=== PATIENT | male | born 1955 | race Caucasian/White ===

== ENCOUNTER 2023-03-08 19:16 | Inpatient (IN) | payer BC, MEDICARE ==
[~2023-03-08 19:16] MED LIST: Iopamidol-370 76% 500 ML MDV (1 ML CHARGE) ONE
[2023-03-08] MEDS ORDERED: levETIRAcetam 500 MG (5 mL) VIAL ONE (19:31)
[2023-03-08] MEDS ORDERED: LORazepam 2 MG/ML SYR.(CARPUJECT) ONE ×2 (19:34→22:30)
[2023-03-08] MEDS ORDERED: Haloperidol Lactate 5 MG/ML VIAL ONE (19:38)
[2023-03-08] MEDS ORDERED: diphenhydrAMINE 50 MG/ML VIAL ONE (19:42)
[2023-03-08 19:57] LABS: #Eosinphils 0.1 thou/uL (0.0-0.7); #Monocytes 0.5 thou/uL (0.11-0.59); #Neutrophils 9.1 thou/uL (1.40-6.50); %Basophils 0.4 % (0.0-1.0); %Lymphocytes 8.8 % (21.0-51.0); %Neutrophils 84.4 % (42.0-75.0); Hematocrit 48.3 % (42.0-52.0); Mean Corpuscular HGB CONC 35.2 g/dL (32.0-36.0); Mean Corpuscular Hemoglobin 32.5 pg (27.0-31.0); Mean Corpuscular Volume 92.4 fl (78.0-98.0); Mean Platelet Volume 10.6 fL (7.4-10.4); Platelet Count 219 10x3/uL (130-400); RBC Distribution Width 12.6 % (11.5-14.5); Red Blood Cell (RBC) Count 5.23 mill/uL (4.70-6.10); White Blood Cell (WBC) Count 10.7 10x3/uL (4.8-10.8)
[2023-03-08 20:10] LABS: INR-International Normal Ratio 1.3; Prothrombin Time 16.2 sec (12.0-14.7)
[2023-03-08 20:11] LABS: PTT 24.3 sec (22.9-36.1)
[2023-03-08 20:19] LABS: ALT (SGPT) 19 U/L (8-55); AST (SGOT) 17 U/L (5-34); Albumin 4.9 g/dL (3.4-4.8); Alkaline Phosphatase 80 U/L (40-110); Anion Gap 22 mmol/L (10-20); BUN (Urea Nitrogen) 23 mg/dL (8.4-25.7); Bilirubin, Total 0.8 mg/dL (0.2-1.2); Calc. Creatinine Clearance 0 mL/min (70-130); Calcium 9.5 mg/dL (7.8-10.44); Carbon Dioxide 17 mmol/L (23-31); Chloride 103 mmol/L (98-107); Estimated GFR 53; Globulin 2.9 g/dL (2.4-3.5); Glucose 232 mg/dL (80-115); Lipase 18 U/L (8-78); Magnesium 1.9 mg/dL (1.6-2.6); Potassium 4.2 mmol/L (3.5-5.1); Protein, Total 7.8 g/dL (5.8-8.1); Sodium 138 mmol/L (136-145)
[2023-03-08 20:23] LABS: Troponin I 0.014 ng/mL (< 0.028)
[2023-03-08] MEDS ORDERED: Ondansetron PF 4 MG/2 ML Vial IVP PRN (21:45)
[2023-03-08] MEDS ORDERED: Ondansetron ODT 4 MG TAB SL PRN (21:45)
[2023-03-08] MEDS ORDERED: DOBUTamine 500 mg/250 ml 250 ML ONE (21:46)
[2023-03-08] MEDS ORDERED: Acetaminophen 325 MG TAB PO PRN (22:03)
[2023-03-08] MEDS ORDERED: Lorazepam 1 MG TAB PO PRN (22:05)
[2023-03-08] MEDS ORDERED: Lorazepam 2 MG/ML VIAL IM PRN (22:05)
[2023-03-08] MEDS ORDERED: HumaLOG 300 UNITS/3 ML VIAL SC PRN ×2 (22:07)
[2023-03-08] MEDS ORDERED: Dextrose 50% Abboject 50 ML SYRINGE SLOW IVP PRN (22:07)
[2023-03-08] MEDS ORDERED: Glucagon 1 MG/ML KIT IM PRN (22:07)
[2023-03-08] MEDS ORDERED: Dextrose 5% in Water 1,000 ML IV PRN (22:07)
[2023-03-08] MEDS ORDERED: Sodium Chloride 0.9% 1,000 ML IV SCH (22:15)
[2023-03-08] MEDS ORDERED: Electrolyte Replacement Protocol 1 EACH FS SCH (22:15)
[2023-03-08] MEDS ORDERED: Lorazepam 2 MG/ML VIAL SLOW IVP PRN (22:18)
[2023-03-08] MEDS ORDERED: Folic Acid 1 MG TAB PO SCH (22:30)
[2023-03-08] MEDS ORDERED: Multivit, Therapeutic 1 TAB PO SCH (22:30)
[2023-03-08] MEDS ORDERED: Pantoprazole 40 MG VIAL IVP SCH (22:45)
[2023-03-08 22:52] LABS: Phosphorus 3.1 mg/dL (2.3-4.7)
[2023-03-08] MEDS ORDERED: DOBUTamine 500 mg/250 ml 250 ML IVPB SCH (23:15)
[2023-03-08] MEDS: Thiamine HCl 200 MG/2 ML VIAL SLOW IVP SCH (23:59)
[2023-03-09 00:40] VITALS: BMI 32.5
[2023-03-09] MEDS ORDERED: Magnesium 2 GM/50 ML(in water) 2 GM in Premix 1 BAG IVPB SCH (00:45)
[2023-03-09 05:51] LABS: #Monocytes 1.2 thou/uL (0.11-0.59); %Basophils 0.3 % (0.0-1.0); %Eosinophils 0.2 % (0.0-10.0); %Lymphocytes 12.7 % (21.0-51.0); %Monocytes 12.7 % (0.0-10.0); %Neutrophils 73.7 % (42.0-75.0); Hematocrit 44.2 % (42.0-52.0); Hemoglobin 15.1 g/dL (14.0-18.0); Mean Corpuscular HGB CONC 34.2 g/dL (32.0-36.0); Mean Corpuscular Volume 93.6 fl (78.0-98.0); Mean Platelet Volume 10.9 fL (7.4-10.4); Platelet Count 198 10x3/uL (130-400); RBC Distribution Width 12.8 % (11.5-14.5); Red Blood Cell (RBC) Count 4.72 mill/uL (4.70-6.10); White Blood Cell (WBC) Count 9.4 10x3/uL (4.8-10.8)
[2023-03-09 06:00] LABS: Hemoglobin A1c 10.3 % (4.0-6.0)
[2023-03-09 06:30] LABS: ALT (SGPT) 14 U/L (8-55); AST (SGOT) 16 U/L (5-34); Albumin 3.8 g/dL (3.4-4.8); Alkaline Phosphatase 58 U/L (40-110); Anion Gap 21 mmol/L (10-20); BUN (Urea Nitrogen) 19 mg/dL (8.4-25.7); Bilirubin, Total 0.7 mg/dL (0.2-1.2); Calc. Creatinine Clearance 97 mL/min (70-130); Calcium 8.5 mg/dL (7.8-10.44); Carbon Dioxide 18 mmol/L (23-31); Cardiac Risk 5.1 (Less than 4.5); Chloride 105 mmol/L (98-107); Cholesterol 184 mg/dl (< 200 Desired); Estimated GFR 74; Globulin 2.7 g/dL (2.4-3.5); Glucose 132 mg/dL (80-115); HDL Cholesterol 36 mg/dL (>60 Neg Risk); LDL Cholesterol, Calculated 136 mg/dL; Magnesium 2.6 mg/dL (1.6-2.6); Potassium 3.6 mmol/L (3.5-5.1); Protein, Total 6.5 g/dL (5.8-8.1); Sodium 140 mmol/L (136-145); Triglycerides 59 mg/dL (Less than 150)
[2023-03-09] MEDS ORDERED: Electrolyte Replacement Protocol FS PRN (08:45)
[2023-03-09] MEDS: levETIRAcetam 500 MG (5 mL) VIAL SLOW IVP SCH ×2 (09:42→21:35)
[2023-03-09] MEDS: Pantoprazole 40 MG VIAL IVP SCH (09:43)
[2023-03-09] MEDS: Aspirin 81 mg Enteric Coated Tablet PO SCH ×2 (09:43→09:50)
[2023-03-09] MEDS: Folic Acid 1 MG TAB PO SCH ×2 (09:43→09:50)
[2023-03-09] MEDS: Multivit, Therapeutic 1 TAB PO SCH ×2 (09:43→09:50)
[2023-03-09 13:43] LABS: Troponin I 0.157 ng/mL (< 0.028)
[2023-03-09 19:25] LABS: Bacteria/HPF None Seen HPF (None Seen); Bilirubin Negative (Negative); Blood, Urine Negative (Negative); CAUTI Indications for Culture Alt mental st,lethar; Clarity Clear (Clear); Glucose, Urine (Dipstick) Greater than 1000 mg/dL (Negative); Ketone, Urine 40 mg/dL (Negative); Leukocyte Negative Leu/uL (Negative); Nitrite Negative (Negative); Protein, Urine (Dipstick) 70 mg/dL (Neg-Trace); RBC/HPF 0-3 HPF (0-3); Specific Gravity, Urine 1.046 (1.002-1.036); Squamous Epithelial None Seen HPF (0-3); Urobilinogen Normal mg/dL (Less than 2); WBC/HPF 0-3 HPF (0-3); pH, Urine 5.5 (5.0-9.0)
[2023-03-09 19:26] LABS: Sperm/HPF 1+ HPF (None Seen)
[2023-03-09 19:28] LABS: Urine Culture Reflex No No
[2023-03-09 19:32] LABS: Amphetamine Not Detected (NotDetected); Barbiturates Screen Not Detected (NotDetected); Benzodiazepine Screen Detected (NotDetected); Cocaine Metabolite Screen Not Detected (NotDetected); Methadone Not Detected (NotDetected); Methamphetamine Not Detected (NotDetected); Opiate Screen Not Detected (NotDetected); Oxycodone Screen Not Detected (NotDetected); Phencyclidine (PCP) Not Detected (NotDetected); THC/Cannabinoid Screen Not Detected (NotDetected); Tricyclic Screen Not Detected (NotDetected)
[2023-03-09] MEDS: Atorvastatin Calcium 40 MG TAB PO SCH (21:35)
[2023-03-09] MEDS: Thiamine HCl 200 MG/2 ML VIAL SLOW IVP SCH (21:51)
[2023-03-09] MEDS: Lorazepam 1 MG TAB PO PRN (22:22)
[2023-03-10 06:33] LABS: #Eosinphils 0.1 thou/uL (0.0-0.7); #Neutrophils 6.1 thou/uL (1.40-6.50); %Basophils 0.5 % (0.0-1.0); %Eosinophils 1.2 % (0.0-10.0); %Lymphocytes 16.1 % (21.0-51.0); %Monocytes 11.6 % (0.0-10.0); %Neutrophils 70.3 % (42.0-75.0); Hematocrit 43.6 % (42.0-52.0); Hemoglobin 14.5 g/dL (14.0-18.0); Mean Corpuscular HGB CONC 33.3 g/dL (32.0-36.0); Mean Corpuscular Hemoglobin 31.9 pg (27.0-31.0); Mean Corpuscular Volume 95.8 fl (78.0-98.0); Mean Platelet Volume 10.6 fL (7.4-10.4); Platelet Count 199 10x3/uL (130-400); RBC Distribution Width 13.1 % (11.5-14.5); Red Blood Cell (RBC) Count 4.55 mill/uL (4.70-6.10); White Blood Cell (WBC) Count 8.6 10x3/uL (4.8-10.8)
[2023-03-10] MEDS ORDERED: Vancomycin 1 GM in Premix 1 BAG IVPB SCH (07:00)
[2023-03-10 07:39] LABS: ALT (SGPT) 10 U/L (8-55); AST (SGOT) 17 U/L (5-34); Albumin 3.8 g/dL (3.4-4.8); Alkaline Phosphatase 61 U/L (40-110); Anion Gap 15 mmol/L (10-20); BUN (Urea Nitrogen) 16 mg/dL (8.4-25.7); Bilirubin, Total 1.1 mg/dL (0.2-1.2); Calc. Creatinine Clearance 99 mL/min (70-130); Calcium 8.5 mg/dL (7.8-10.44); Carbon Dioxide 21 mmol/L (23-31); Chloride 106 mmol/L (98-107); Estimated GFR 77; Globulin 2.6 g/dL (2.4-3.5); Glucose 150 mg/dL (80-115); Magnesium 1.9 mg/dL (1.6-2.6); Potassium 3.9 mmol/L (3.5-5.1); Protein, Total 6.4 g/dL (5.8-8.1); Sodium 138 mmol/L (136-145)
[2023-03-10] MEDS ORDERED: Magnesium 2 GM/50 ML(in water) 2 GM in Premix 1 BAG IVPB SCH (08:15)
[2023-03-10] MEDS: Aspirin 81 mg Enteric Coated Tablet PO SCH (08:47)
[2023-03-10] MEDS: Multivit, Therapeutic 1 TAB PO SCH (08:48)
[2023-03-10] MEDS: Pantoprazole 40 MG VIAL IVP SCH (08:48)
[2023-03-10] MEDS: levETIRAcetam 500 MG (5 mL) VIAL SLOW IVP SCH ×2 (08:48→20:25)
[2023-03-10] MEDS: Folic Acid 1 MG TAB PO SCH (08:48)
[2023-03-10] MEDS ORDERED: Gentamicin 80 MG/2 ML VIAL ONE (10:36)
[2023-03-10] MEDS ORDERED: CEFAZOLIN 2 GM VIAL ONE (10:36)
[2023-03-10] MEDS ORDERED: Propofol 1,000 MG/100 ML VIAL IV ONE (11:01)
[2023-03-10] MEDS ORDERED: Lidocaine 2% 6 ML (Jelly) SYR ONE (11:02)
[2023-03-10] MEDS ORDERED: fentaNYL 50 mcg/mL 1 mL Vial ONE (11:03)
[2023-03-10] MEDS ORDERED: Midazolam HCl 2 mg/2 ml Vial ONE (11:07)
[2023-03-10] MEDS ORDERED: Ondansetron PF 4 MG/2 ML Vial ONE (11:41)
[2023-03-10] MEDS ORDERED: PHENYLEPHRINE-NS 100 MCG/ML 10 ML SYRINGE ONE ×2 (12:06→12:42)
[2023-03-10] MEDS ORDERED: Iopamidol 370 76% 100 ML VIAL ONE (12:18)
[2023-03-10] MEDS: Atorvastatin Calcium 40 MG TAB PO SCH (20:24)
[2023-03-10] MEDS: Lorazepam 1 MG TAB PO PRN (20:35)
[2023-03-10] MEDS ORDERED: Lorazepam 1 MG TAB PO PRN (22:05)
[2023-03-10] MEDS: Thiamine HCl 200 MG/2 ML VIAL SLOW IVP SCH (22:46)
[2023-03-11 03:59] LABS: #Eosinphils 0.3 thou/uL (0.0-0.7); #Monocytes 0.7 thou/uL (0.11-0.59); %Basophils 0.4 % (0.0-1.0); %Eosinophils 3.7 % (0.0-10.0); %Lymphocytes 16.6 % (21.0-51.0); %Monocytes 9.7 % (0.0-10.0); %Neutrophils 69.5 % (42.0-75.0); Hematocrit 42.6 % (42.0-52.0); Hemoglobin 14.3 g/dL (14.0-18.0); Mean Corpuscular HGB CONC 33.6 g/dL (32.0-36.0); Mean Corpuscular Hemoglobin 32.4 pg (27.0-31.0); Mean Corpuscular Volume 96.6 fl (78.0-98.0); Mean Platelet Volume 10.7 fL (7.4-10.4); Platelet Count 189 10x3/uL (130-400); RBC Distribution Width 12.7 % (11.5-14.5); Red Blood Cell (RBC) Count 4.41 mill/uL (4.70-6.10); White Blood Cell (WBC) Count 7.3 10x3/uL (4.8-10.8)
[2023-03-11 04:26] LABS: ALT (SGPT) 13 U/L (8-55); AST (SGOT) 16 U/L (5-34); Albumin 3.5 g/dL (3.4-4.8); Alkaline Phosphatase 57 U/L (40-110); Anion Gap 14 mmol/L (10-20); BUN (Urea Nitrogen) 15 mg/dL (8.4-25.7); Bilirubin, Total 1.1 mg/dL (0.2-1.2); Calc. Creatinine Clearance 119 mL/min (70-130); Calcium 8.2 mg/dL (7.8-10.44); Carbon Dioxide 21 mmol/L (23-31); Chloride 106 mmol/L (98-107); Estimated GFR 93; Globulin 2.6 g/dL (2.4-3.5); Glucose 112 mg/dL (80-115); Magnesium 1.9 mg/dL (1.6-2.6); Potassium 3.6 mmol/L (3.5-5.1); Protein, Total 6.1 g/dL (5.8-8.1); Sodium 137 mmol/L (136-145)
[2023-03-11] MEDS ORDERED: Magnesium 2 GM/50 ML(in water) 2 GM in Premix 1 BAG IVPB SCH (08:00)
[2023-03-11] MEDS: Folic Acid 1 MG TAB PO SCH (08:52)
[2023-03-11] MEDS: Multivit, Therapeutic 1 TAB PO SCH (08:52)
[2023-03-11] MEDS: Aspirin 81 mg Enteric Coated Tablet PO SCH (08:52)
[2023-03-11] MEDS: Thiamine 100 MG TAB PO SCH (08:53)
[2023-03-11] MEDS: levETIRAcetam 500 MG (5 mL) VIAL SLOW IVP SCH ×2 (08:53→19:38)
[2023-03-11] MEDS: Pantoprazole 40 MG VIAL IVP SCH (08:53)
[2023-03-11] MEDS: Losartan 25 MG TAB PO SCH (09:11)
[2023-03-11] MEDS: hydrALAZINE 20 MG/ML VIAL SLOW IVP PRN ×2 (14:08→17:48)
[2023-03-11] MEDS: Atorvastatin Calcium 40 MG TAB PO SCH (19:37)
[2023-03-11] MEDS ORDERED: Lorazepam 0.5 MG TAB PO PRN (22:05)
[2023-03-12 07:56] VITALS: TEMP 98.9
[2023-03-12] MEDS ORDERED: Carvedilol 6.25 MG TAB PO SCH (08:00)
[2023-03-12] MEDS: Aspirin 81 mg Enteric Coated Tablet PO SCH (08:22)
[2023-03-12] MEDS: Folic Acid 1 MG TAB PO SCH (08:23)
[2023-03-12] MEDS: Losartan 25 MG TAB PO SCH (08:23)
[2023-03-12] MEDS: Multivit, Therapeutic 1 TAB PO SCH (08:24)
[2023-03-12] MEDS: Thiamine 100 MG TAB PO SCH (08:24)
[2023-03-12] MEDS: levETIRAcetam 500 MG (5 mL) VIAL SLOW IVP SCH (08:25)
[2023-03-12] MEDS: Pantoprazole 40 MG VIAL IVP SCH (08:27)
[2023-03-12 12:01] VITALS: BP 161/79
== END 2023-03-12 11:02 | disposition home or self-care (01) | DRG 40 ==
LOC: ERS 19:16 → ERHOLD 21:34 → OBSVTOIN 21:46 → IMCU/EMU 22:46 → 2SE 03-11 16:47
PROVIDERS: ADMIT Internal Medicine; ATTEND Hospitalist
PROC: 4A10X4Z Monitoring of Central Nervous Electrical Activity, External Approach (ICD-10-PCS; 2023-03-09)
PROC: 02H63JZ Insertion of Pacemaker Lead into Right Atrium, Percutaneous Approach (ICD-10-PCS; principal; 2023-03-10)
PROC: 02HK3JZ Insertion of Pacemaker Lead into Right Ventricle, Percutaneous Approach (ICD-10-PCS; 2023-03-10)
PROC: 0JH602Z Insertion of Monitoring Device into Chest Subcutaneous Tissue and Fascia, Open Approach (ICD-10-PCS; 2023-03-10)
PROC: 0JH606Z Insertion of Pacemaker, Dual Chamber into Chest Subcutaneous Tissue and Fascia, Open Approach (ICD-10-PCS; 2023-03-10)
PROC: 4A10X4Z Monitoring of Central Nervous Electrical Activity, External Approach (ICD-10-PCS; 2023-03-11)
DX: I63.9 Cerebral infarction, unspecified (principal); G93.41 Metabolic encephalopathy; I44.2 Atrioventricular block, complete; N17.9 Acute kidney failure, unspecified; E87.20 Acidosis, unspecified; I10 Essential (primary) hypertension; I48.91 Unspecified atrial fibrillation; E11.9 Type 2 diabetes mellitus without complications; R56.9 Unspecified convulsions; F10.10 Alcohol abuse, uncomplicated; I65.21 Occlusion and stenosis of right carotid artery; E78.00 Pure hypercholesterolemia, unspecified; Z79.01 Long term (current) use of anticoagulants; Z79.899 Other long term (current) drug therapy; Z79.84 Long term (current) use of oral hypoglycemic drugs; Z98.890 Other specified postprocedural states; Z87.891 Personal history of nicotine dependence; Z91.199 Patient's noncompliance with other medical treatment and regimen due to unspecified reason
CPT/HCPCS: 33208; 33286; 36415; 36416; 70450; 70496; 70498; 70551; 71045; 80053; 80061; 80306; 81001; 82010; 82550; 83036; 83605; 83690; 83735; 84100; 84484; 85025; 85610; 85730; 93005; 93010; 93306; 95711; 95819; 96361; 96365; 96375; C1769; C1785; C1894; C1898; C9113; J0360; J1200; J1250; J1580; J1630; J1815; J1953; J2060; J2250; J2405; J2704; J3010; J3370-JW; J3411; J3475; J7050; Q9967

== ENCOUNTER 2023-04-05 10:38 | Outpatient (CLI) | payer MEDICARE ==
[2023-04-05 12:30] LABS: Hematocrit 41.5 % (38.8-50.0); Hemoglobin 15.1 g/dL (13.5-17.5); Mean Corpuscular HGB CONC 36.4 g/dL (32.0-36.0); Mean Corpuscular Hemoglobin 32.3 pg (27.0-33.0); Mean Corpuscular Volume 88.7 fl (81.2-95.1); Mean Platelet Volume 11.5 fl (7.4-10.4); Platelet Count 151 10x3/uL (150-450); RBC Distribution Width 11.9 % (11.5-14.5); Red Blood Cell (RBC) Count 4.68 10x6/uL (4.32-5.72); White Blood Cell (WBC) Count 6.9 10x3/uL (3.5-10.5)
[2023-04-05 13:23] LABS: Anion Gap 14 mmol/L (10-20); BUN (Urea Nitrogen) 21 mg/dL (8.4-25.7); Calc. Creatinine Clearance 0 mL/min (70-130); Carbon Dioxide 26 mmol/L (23-31); Chloride 103 mmol/L (98-107); Estimated GFR 82; Glucose 243 mg/dL (80-115); Potassium 4.3 mmol/L (3.5-5.1); Sodium 139 mmol/L (136-145)
== END 2023-04-05 10:39 | disposition home or self-care (01) ==
LOC: LABBT 10:38
PROVIDERS: ATTEND Student in an Organized Health Care Education/Training Program
DX: Z01.812 Encounter for preprocedural laboratory examination (principal); I65.21 Occlusion and stenosis of right carotid artery
CPT/HCPCS: 80048; 85027

== ENCOUNTER 2023-04-05 14:30 | Inpatient (IN) | payer MEDICARE ==
[2023-04-07] MEDS ORDERED: Heparin 5,000 UNITS/ML VIAL ONE ×2 (12:38→12:56)
[2023-04-07] MEDS ORDERED: EPINEPHrine 1 MG/ML VIAL ONE (12:39)
[2023-04-07] MEDS ORDERED: Bupivacaine PF 0.5% 30 ML VIAL ONE (12:39)
[2023-04-07] MEDS ORDERED: Midazolam HCl 2 mg/2 ml Vial ONE (12:49)
[2023-04-07] MEDS ORDERED: Rocuronium Bromide 10 MG/ML (10ML VIAL) ONE (12:49)
[2023-04-07] MEDS ORDERED: Lidocaine 2% PF 5 ML VIAL ONE (12:49)
[2023-04-07] MEDS ORDERED: PROPOFOL 20 ML ONE (12:49)
[2023-04-07] MEDS ORDERED: fentaNYL PF 100 MCG/2 ML SYRINGE ONE (12:49)
[2023-04-07] MEDS ORDERED: CEFAZOLIN 2 GM VIAL ONE (13:03)
[2023-04-07] MEDS ORDERED: Sodium Chloride 0.9% 100 ML ONE (13:03)
[2023-04-07] MEDS ORDERED: Ondansetron PF 4 MG/2 ML Vial ONE (13:59)
[2023-04-07] MEDS ORDERED: Protamine Sulfate 50 MG/5 ML VIAL ONE (13:59)
[2023-04-07] MEDS ORDERED: Dexamethasone 20 MG/5 ML VIAL ONE (13:59)
[2023-04-07] MEDS ORDERED: SUGAMMADEX SODIUM 200 MG/2 ML VIAL ONE (14:23)
[2023-04-07] MEDS ORDERED: PHENYLEPHRINE-NS 100 MCG/ML 10 ML SYRINGE ONE ×2 (14:25→14:53)
[2023-04-07] MEDS ORDERED: Ondansetron HCl/PF 4 MG/2 ML Vial IVP PRN (15:07)
[2023-04-07] MEDS ORDERED: Promethazine HCl 25 MG/ML VIAL IM PRN ×2 (15:07→15:19)
[2023-04-07] MEDS ORDERED: Ondansetron PF 4 MG/2 ML Vial IVP PRN (15:19)
[2023-04-07] MEDS ORDERED: Morphine 4 MG/ML VIAL SLOW IVP PRN (15:19)
[2023-04-07] MEDS ORDERED: Ipratropium/Albuterol 3 ML NEB NEB PRN (15:19)
[2023-04-07] MEDS ORDERED: traMADol HCl 50 MG TAB PO PRN (15:19)
[2023-04-07] MEDS ORDERED: Acetaminophen 500 MG TAB ONE (16:31)
[2023-04-07] MEDS: Acetaminophen 500 MG TAB PO SCH (16:34)
[2023-04-07 17:41] VITALS: BMI 34.2
[2023-04-07] MEDS: hydrALAZINE 20 MG/ML VIAL SLOW IVP PRN (17:41)
[2023-04-07] MEDS: Sodium Chloride 0.9% 1,000 ML IV SCH (17:41)
[2023-04-07] MEDS: Ipratropium/Albuterol 3 ML NEB NEB SCH (18:30)
[2023-04-07] MEDS: hydrALAZINE 20 MG/ML VIAL SLOW IVP SCH (18:48)
[2023-04-07] MEDS: Carvedilol 25 MG TAB PO SCH (19:30)
[2023-04-07] MEDS: Atorvastatin Calcium 40 MG TAB PO SCH (19:30)
[2023-04-07] MEDS: Losartan 25 MG TAB PO SCH (20:20)
[2023-04-07] MEDS: CEFAZOLIN 2 GM in Sodium Chloride 0.9% 100 ML IVPB SCH (20:25)
[2023-04-07] MEDS: Labetalol HCl 100 MG/20 ML VIAL SLOW IVP PRN (22:43)
[2023-04-07 22:45] VITALS: BP 161/63
[2023-04-08] MEDS: Gabapentin 300 MG CAP PO SCH (08:31)
[2023-04-08] MEDS: DULoxetine 20 MG CAP PO SCH (08:31)
[2023-04-08] MEDS: Aspirin Chewable 81 MG TAB PO SCH (08:31)
[2023-04-08] MEDS: Losartan 25 MG TAB PO SCH (09:05)
[2023-04-08 12:06] VITALS: TEMP 97.9
[2023-04-09] MEDS ORDERED: Losartan 25 MG TAB PO SCH (09:00)
== END 2023-04-08 13:10 | disposition home or self-care (01) | DRG 38 ==
LOC: SURG A 04-07 08:23 → CCU 04-07 16:47
PROVIDERS: ADMIT Student in an Organized Health Care Education/Training Program; ATTEND Student in an Organized Health Care Education/Training Program
PROC: 03CK0ZZ Extirpation of Matter from Right Internal Carotid Artery, Open Approach (ICD-10-PCS; principal; 2023-04-07)
PROC: 03CH0ZZ Extirpation of Matter from Right Common Carotid Artery, Open Approach (ICD-10-PCS; 2023-04-07)
PROC: 03CM0ZZ Extirpation of Matter from Right External Carotid Artery, Open Approach (ICD-10-PCS; 2023-04-07)
PROC: 03UM0KZ Supplement Right External Carotid Artery with Nonautologous Tissue Substitute, Open Approach (ICD-10-PCS; 2023-04-07)
DX: I65.21 Occlusion and stenosis of right carotid artery (principal); K92.1 Melena; E11.9 Type 2 diabetes mellitus without complications; I10 Essential (primary) hypertension; Z95.0 Presence of cardiac pacemaker; I25.10 Atherosclerotic heart disease of native coronary artery without angina pectoris; Z79.01 Long term (current) use of anticoagulants; Z79.899 Other long term (current) drug therapy; R33.9 Retention of urine, unspecified
CPT/HCPCS: 86850; 86900; 86901; 94640; C1768; J0171; J0360; J0665; J1100; J1642; J1644; J2001; J2250; J2405; J2704; J2720; J3490; J7050; J7620